=== PATIENT | female | born 1985 | race African-American/Black ===

== ENCOUNTER 2024-07-16 14:55 | Emergency (ER) | payer OTHER ==
[~2024-07-16] VITALS: Ht 172.7 cm; Wt 90.0 kg
[2024-07-16 14:56] VITALS: O2SAT 99
[2024-07-16 15:44] LABS: BASOPHILS % 0.5 % (0.0-2.0); DIFFERENTIAL COMMENT 0; EOSINOPHILS % 1.2 % (0.0-5.0); HEMATOCRIT. 39.6 % (36.0-48.0); HEMOGLOBIN. 12.6 g/dL (12.0-16.0); LYMPHOCYTES % 41.5 % (20.0-50.0); MEAN CORPUSCULAR HEMOGLOBIN 23.3 pg (28.0-32.0); MEAN CORPUSCULAR HGB CONC 31.9 g/dL (31.0-37.0); MEAN CORPUSCULAR VOLUME 73.1 fL (81.0-99.0); MEAN PLATELET VOLUME 10.3 fl (7.4-10.4); MONOCYTES % 7.5 % (2.0-8.0); NEUTROPHILS % 49.3 % (40.0-76.0); PLATELET 256 x1000/uL (130-400); RED BLOOD CELL COUNT 5.42 mill/uL (4.2-5.4); RED CELL DISTRIBUTION WIDTH 14.4 % (11.6-14.6); WHITE BLOOD COUNT 10.7 x1000/uL (4.5-11.0)
[2024-07-16 15:46] LABS: CHLORIDE 103 mEq/L (98-107); POTASSIUM 3.2 mEq/L (3.5-5.1); SODIUM 139 mEq/L (136-145)
[2024-07-16 15:47] LABS: CARBON DIOXIDE 22 mEq/L (21-32)
[2024-07-16 15:48] LABS: CALCIUM 9.3 mg/dL (8.7-10.4); D-DIMER 0.24 mg/L FEU (<0.50); INR 1.1; PROTHROMBIN TIME 11.5 sec (9.6-11.0)
[2024-07-16 15:52] LABS: CREATININE 0.7 mg/dL (0.6-1.0); GLUCOSE 101 mg/dL (70-105)
[2024-07-16 15:53] LABS: UREA NITROGEN BLOOD 15 mg/dL (9-23)
[2024-07-16 15:56] LABS: TROPONIN I HIGH SENSITIVITY < 4 ng/L (3.0-34)
[2024-07-16 15:57] LABS: THYROID STIMULATING HORMONE 0.83 uIU/mL (0.55-4.78)
[2024-07-16 16:18] LABS: HCG SCREEN NEGATIVE
[2024-07-16] MEDS: POTASSIUM CHLORIDE 20MEQ TABLET SR PO NR (17:18)
[2024-07-16 17:39] LABS: TROPONIN I HIGH SENSITIVITY < 4 ng/L (3.0-34)
[2024-07-16 18:00] VITALS: BP 140/82; PULSE 96; RESP 17; TEMP 37.1; O2SAT 98
== END 2024-07-16 18:00 | disposition home or self-care (01) ==
LOC: ER 14:55
DX: R07.89 Other chest pain (principal); R00.2 Palpitations; I10 Essential (primary) hypertension; Z88.0 Allergy status to penicillin
CPT/HCPCS: 36415; 71045; 80048; 83735; 83880; 84443; 84484; 84703; 85025; 85379; 99285